=== PATIENT | male | born 1930 | race Caucasian/White ===

== ENCOUNTER 2018-07-25 08:48 | Emergency (ER) | payer MEDICARE, OTHER ==
[2018-07-25 08:58] VITALS: BP 146/112
[2018-07-25] MEDS ORDERED: Sodium Chloride 0.9% 10 ML Syringe FLUSH PRN (09:40)
--- NOTE | 2018-07-25 10:13 | CT ---
CT cervical spine Technique: Multiple axial sections were obtained from above the C1 inferiorly to the bottom of T2. Reconstructed sagittal and coronal images were reviewed. Findings: Fracture is identified at the base of the dens. There is minimal posterior tilt of the dens but no other displacement is seen. C1 arch appears intact. No additional fracture is seen. Diffuse degenerative change is noted throughout the apophyseal joints. Severe disc space narrowing is noted at C4-C5, C5-C6 and C6-C7 with posterior osteophytes. Anterior osteophytes are also noted at these levels. Mild spondylolisthesis is noted at C3-C4 measuring approximately 2 mm which is due to degenerative apophyseal change. Mild spondylolisthesis is also noted at T1-T2 measuring 2-3 mm which is also due to degenerative apophyseal change. Slightly abnormal cervical curvature is seen which is due to degenerative change. Mild central canal stenosis noted at C5-C6 due to posterior spurring. Moderate left-sided neural foraminal stenosis noted at C4-C5. Other neural foramina are felt to be fairly well patent. Impression: 1. Minimally angulated fracture at the base of the dens. 2. Degenerative change as noted above. No additional acute abnormality is appreciated. Note: Finding of dens fracture was verbally given to Dr. Pichardo after the exam's completion by phone. Diagnostic code #5
--- NOTE | 2018-07-25 10:13 | CT ---
Head CT Technique: Multiple axial sections through the brain were obtained. Intravenous contrast was not utilized. Comparison: No prior intracranial imaging is available. Findings: Ventricles along with basal cisterns and sulci over the convexities are moderately prominent. Minimal diminished density is noted within the periventricular white matter most likely due to small vessel ischemic demyelination change. No other abnormal parenchymal densities are seen. No evidence of intracranial hemorrhage. No midline shift or mass effect is seen. Bone window settings were reviewed which show no acute calvarial abnormality. No acute paranasal sinus findings are seen. Mastoid sinuses are clear. Atherosclerotic calcification is seen within the carotid siphon. Impression: 1. Senescent change as described above. 2. No acute intracranial abnormality is appreciated. Diagnostic code #2
--- NOTE | 2018-07-25 10:13 | CT ---
CT facial bones Technique: Multiple axial sections through the facial bones were obtained. Reconstructed coronal and sagittal images were reviewed. Comparison: No prior facial bone study. Findings: Minimal nasal bone fracture is seen. Paranasal sinuses are clear. Right and left globes are symmetric. No additional facial bone fracture is seen. Impression: 1. Slight nasal bone fracture. 2. No additional abnormality is appreciated on CT study of the facial bones. Diagnostic code #3
--- NOTE | 2018-07-25 12:11 | EDM.PDOC ---
ED HPI GENERAL MEDICAL PROBLEM - General Chief Complaint: Trauma Stated Complaint: [facility] Time Seen by Provider: 07/25/18 08:58 Source of Information: Reports: Patient History Limitations: Reports: No Limitations - History of Present Illness INITIAL COMMENTS - FREE TEXT/NARRATIVE: The patient presents by [facility] for a fall, head injury and neck pain. He says last night this happened and he is not sure why. He has abrasions to his nose with ecchymosis below both eyes. He has abrasions with skin tears to his right arm and left wrist. He has neck pain but no headache. He ahs abrasions to his forehead. He has no numbness or weakness. He has no pain in his hips or arms. He is not on any blood thinners. Onset: Sudden Duration: Hour(s): (last night) Location: Reports: Face, Neck Quality: Reports: Sharp Severity: Moderate Improves with: Reports: None Worsens with: Reports: None Associated Symptoms: Denies: Chest Pain, Cough, Fever/Chills, Headaches, Nausea/ Vomiting, Shortness of Breath Neck Pain Score (Numeric/FACES): 6 - Related Data Allergies Allergy/AdvReac Type Severity Reaction Status Date / Time albuterol [From Ventolin HFA] Allergy Cannot Verified 07/25/18 08:58 Remember Home Meds: Home Meds Levothyroxine 150 mcg PO ACBREAKFAST 10/27/15 [History] Metoprolol Succinate [Toprol XL] 25 mg PO DAILY 07/25/18 [History] Past Medical History Gastrointestinal History: Reports: GERD Musculoskeletal History: Reports: Osteoarthritis Endocrine/Metabolic History: Reports: Hypothyroidism 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, Lymphoma, 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 - Infectious Disease History Infectious Disease History: Reports: C-Difficile - Past Surgical History HEENT Surgical History: Reports: Cataract Surgery GI Surgical History: Reports: Cholecystectomy, EGD, Hernia Repair/Other Social & Family History - Tobacco Use Smoking Status *Q: Never Smoker - Caffeine Use Caffeine Use: Reports: None - Recreational Drug Use Recreational Drug Use: No - Living Situation & Occupation Living situation: Reports: , Alone Occupation: Retired Review of Systems - Review of Systems Review Of Systems: See Below Constitutional: Reports: No Symptoms Eyes: Reports: No Symptoms Ears: Reports: No Symptoms Nose: Reports: Other (Edema and abrasions) Mouth/Throat: Reports: No Symptoms Respiratory: Reports: No Symptoms Cardiovascular: Reports: No Symptoms GI/Abdominal: Reports: No Symptoms ED EXAM, GENERAL - Physical Exam Exam: See Below Exam Limited By: No Limitations General Appearance: Alert, No Apparent Distress Eye Exam: Bilateral Eye: EOMI Ears: Normal External Exam Nose: Other (Abrasion to the nose with edema and eccchymosis. The ecchymosis does extend below both eyes) Throat/Mouth: Normal Inspection Head: Other (Abrasions to the right forehead) Neck: Other (Pain upon palpation to the upper cervical spine) Respiratory/Chest: No Respiratory Distress, Lungs Clear, Normal Breath Sounds Cardiovascular: Regular Rate, Rhythm, No Edema, No Murmur GI/Abdominal: Soft, Non-Tender, No Organomegaly, No Mass Back Exam: Normal Inspection Extremities: Other (Abrasions and skin tears to the right forearm wtih abrasions to the left wrist. No pain upon palpation to the arms or legs and no pain to the hips.) Neurological: Alert, Oriented, No Motor/Sensory Deficits EKG INTERPRETATION EKG Date: 07/25/18 Time: 09:38 Rhythm: A-Fib Rate (Beats/Min): 91 [place]: Normal QRS: RBBB ST-T: Normal QT: Normal Course - Vital Signs Last Recorded V/S: Last Vital Signs Temp 97.2 F 07/25/18 08:54 Pulse 90 07/25/18 08:54 Resp 16 07/25/18 08:54 BP 146/112 H 07/25/18 08:54 Pulse Ox 100 07/25/18 08:54 - Orders/Labs/Meds Orders: Active Orders 24 hr Category Date Time Status Cardiac Monitoring [RC] . DIRECTED Care 07/25/18 09:40 Active EKG 12 Lead [EKG Documentation Completion] [RC] STAT Care 07/25/18 09:37 Active Peripheral IV Care [RC] . DIRECTED Care 07/25/18 09:42 Active Sodium Chloride 0.9% [Saline Flush] Med 07/25/18 09:40 Active 10 ml FLUSH ASDIRECTED PRN Peripheral IV Insertion Adult [OM.PC] Stat Oth 07/25/18 09:40 Ordered Medication Orders Sodium Chloride (Saline Flush) 10 ml FLUSH ASDIRECTED PRN PRN Reason: Keep Vein Open Last Admin: 07/25/18 10:10 Dose: 10 ml Labs: Laboratory Tests 07/25/18 07/25/18 07/25/18 Range/Units 10:07 10:07 10:07 WBC 6.04 (4.23-9.07) K/mm3 RBC 4.48 L (4.63-6.08) M/mm3 Hgb 15.0 (13.7-17.5) gm/L Hct 43.8 (40.1-51.0) % MCV 97.8 H (79.0-92.2) fl MCH 33.5 H (25.7-32.2) pg MCHC 34.2 (32.2-35.5) g/dl RDW Std Deviation 48.8 H (35.1-43.9) fL Plt Count 119 L (163-337) K/mm3 MPV 9.9 (9.4-12.3) fl Neut % (Auto) 70.8 H (34.0-67.9) % Lymph % (Auto) 16.6 L (21.8-53.1) % [place] % (Auto) 10.1 (5.3-12.2) % Eos % (Auto) 2.0 (0.8-7.0) Baso % (Auto) 0.3 (0.1-1.2) % Neut # (Auto) 4.28 (1.78-5.38) K/mm3 Lymph # (Auto) 1.00 L (1.32-3.57) K/mm3 [place] # (Auto) 0.61 (0.30-0.82) K/mm3 Eos # (Auto) 0.12 (0.04-0.54) K/mm3 Baso # (Auto) 0.02 (0.01-0.08) K/mm3 PT 10.6 (9.5-12.1) SECONDS INR 0.97 APTT 32 H (24-31) SECONDS Sodium 140 (136-145) mEq/L Potassium 3.7 (3.5-5.1) mEq/L Chloride 104 (98-107) mEq/L Carbon Dioxide 23 (21-32) mEq/L Anion Gap 16.7 H (5-15) BUN 20 H (7-18) mg/dL Creatinine 1.2 (0.7-1.3) mg/dL Est Cr Clr Drug Dosing TNP Estimated GFR (MDRD) 57 (>60) mL/min BUN/Creatinine Ratio 16.7 (14-18) Glucose 98 (83-115) mg/dL Calcium 9.2 (8.5-10.1) mg/dL Magnesium 1.9 (1.8-2.4) mg/dl Total Bilirubin 0.7 (0.2-1.0) mg/dL AST 27 (15-37) U/L ALT 22 (16-63) U/L Alkaline Phosphatase 92 (46-116) U/L Troponin I < 0.017 (0.00-0.056) ng/mL Total Protein 7.2 (6.4-8.2) g/dl Albumin 3.9 (3.4-5.0) g/dl Globulin 3.3 gm/dL Albumin/Globulin Ratio 1.2 (1-2) TSH 3rd Generation 0.801 (0.358-3.74) uIU/mL Meds: Medications Generic Name Dose Route Start Last Admin Trade Name Freq PRN Reason Stop Dose Admin Sodium Chloride 10 ml 07/25/18 09:40 07/25/18 10:10 Saline Flush FLUSH 10 ml ASDIRECTED PRN Administration Keep Vein Open - Re-Assessments/Exams Free Text/Narrative Re-Assessment/Exam: 07/25/18 12:[address] of his neck, facial bones and head. The CT of his facial bones shows slight nasal bone fracture. No additional abnormality on CT study of the facial bones. The CT of his head showed senescent change and not acute intracranial abnormality is appreciated. The CT of his cervical spine shows minimally angulated fracture at the base of the dens. Degenerative change. No additional acute abnormality if appreciated. I put a c-collar back on him. I did remove the one the ambulance put on because it was uncomfortable. The patient had A-fib on the monitor and he went fast for awhile. We did not catch it so I did order an EKG of his heart and it showed A-fib with RBBB. Nothing acute is seen. His CBC is normal. His PT is 10.6 and PTT is 32. His anion gap was a little elevated at 16.7. His troponin is negative. His TSH is negative. I sent the films to [facility] and I am waiting for Dr Song to call me back. 07/25/18 13:53 Dr Song wanted him an [place] collar and he will see him in 2 weeks. We do not have that kind of collar here but I have ordered one. We will keep him in the [place] J collar. Departure - Departure Time of Disposition: 14:00 Disposition: Home, Self-Care 01 Condition: Good Clinical Impression: Skin tear of right upper extremity Fall Qualifiers: Encounter type: initial encounter Qualified Code(s): W19.XXXA - Unspecified fall, initial encounter Abrasion of face Qualifiers: Encounter type: initial encounter Qualified Code(s): S00.81XA - Abrasion of other part of head, initial encounter C2 cervical fracture Qualifiers: Encounter type: initial encounter Fracture type: closed Fracture morphology: other dens Fracture alignment: nondisplaced Qualified Code(s): S12.121A - Other nondisplaced dens fracture, initial encounter for closed fracture Nasal bone fracture Qualifiers: Encounter type: initial encounter Fracture type: closed Qualified Code(s): S02.2XXA - Fracture of nasal bones, initial encounter for closed fracture Atrial fibrillation Qualifiers: Atrial fibrillation type: chronic Qualified Code(s): I48.2 - Chronic atrial fibrillation - Discharge Information *PRESCRIPTION DRUG MONITORING PROGRAM REVIEWED*: Not Applicable *COPY OF PRESCRIPTION DRUG MONITORING REPORT IN PATIENT AMY: Not Applicable Referrals: Lester Flaherty Jr, MD [Primary Care Provider] - 1 Week Blair Song MD [Consulting Physician] - 1 Week Forms: ED Department Discharge Additional Instructions: Clean the abrasions with warm soapy water 2 times per day and apply antibiotic ointment after. Wear the cervical collar. Our medical supply store will contact you with a time to get a cervical collar. Take tylenol or motrin for pain. Put ice on you nose for 15 minutes 3 times per day for 2 days. Please return if you are worse. - My Orders Last 24 Hours: My Active Orders 07/25/18 09:37 EKG 12 Lead [EKG Documentation Completion] [RC] STAT 07/25/18 09:40 Cardiac Monitoring [RC] . DIRECTED Sodium Chloride 0.9% [Saline Flush] 10 ml FLUSH ASDIRECTED PRN Peripheral IV Insertion Adult [OM.PC] Stat 07/25/18 09:42 Peripheral IV Care [RC] . DIRECTED - Assessment/Plan Last 24 Hours: My Active Orders 07/25/18 09:37 EKG 12 Lead [EKG Documentation Completion] [RC] STAT 07/25/18 09:40 Cardiac Monitoring [RC] . DIRECTED Sodium Chloride 0.9% [Saline Flush] 10 ml FLUSH ASDIRECTED PRN Peripheral IV Insertion Adult [OM.PC] Stat 07/25/18 09:42 Peripheral IV Care [RC] . DIRECTED
== END 2018-07-25 14:15 | disposition home or self-care (01) ==
LOC: JD.ED 08:48
DX: S12.121A Other nondisplaced dens fracture, initial encounter for closed fracture (principal); S02.2XXA Fracture of nasal bones, initial encounter for closed fracture; S51.811A Laceration without foreign body of right forearm, initial encounter; I48.2 Chronic atrial fibrillation; K21.9 Gastro-esophageal reflux disease without esophagitis; W18.39XA Other fall on same level, initial encounter; Z79.899 Other long term (current) drug therapy; Z88.8 Allergy status to other drugs, medicaments and biological substances
CPT/HCPCS: 36415; 70450; 70450-26; 70486; 70486-26; 72125; 72125-26; 80053; 83735; 84443; 84484; 85025; 85610; 85730; 93005; 93010; 99284; 99285-25